=== PATIENT | female | born 1960 | race Caucasian/White ===

== ENCOUNTER 2021-04-14 17:48 | Emergency (ER) | payer BC ==
[~2021-04-14 17:48] MED LIST: CYCL-394 PO; SUCR1ORA2 PO
== END 2021-04-14 20:34 | disposition left against medical advice (07) ==
LOC: ER 17:48
DX: M79.673 Pain in unspecified foot (principal); Z53.21 Procedure and treatment not carried out due to patient leaving prior to being seen by health care provider